=== PATIENT | female | born 1995 | race Caucasian/White ===

== ENCOUNTER 2016-07-10 20:16 | Emergency (ER) | payer OTHER | END 2016-07-10 20:43 | disposition left against medical advice (07) | LOC: UCCORT 20:16 | DX: H57.8 Other specified disorders of eye and adnexa (principal); Z53.21 Procedure and treatment not carried out due to patient leaving prior to being seen by health care provider ==

== ENCOUNTER 2016-12-07 13:33 | Emergency (ER) | payer OTHER | END 2016-12-07 14:15 | disposition left against medical advice (07) | LOC: UCCORT 13:33 | DX: J34.89 Other specified disorders of nose and nasal sinuses (principal); Z53.21 Procedure and treatment not carried out due to patient leaving prior to being seen by health care provider ==

== ENCOUNTER 2018-04-14 11:00 | Emergency (ER) | payer SELFPAY ==
[2018-04-14] MEDS ORDERED: Ondansetron INJ* 2 MG/ML VIAL IV ONE (11:50)
[2018-04-14] MEDS ORDERED: NS 0.9% 1000 ML* 1,000 ML BOLUS ONE (11:50)
--- NOTE | 2018-04-14 11:54 | UC ---
- HPI Summary HPI Summary: The patient is a 23-year-old female that is approximately 9 weeks by dates. She states that her first OB appointment isn't until the second week of April. She states that she has had daily nausea and vomiting for at least a month. She states that for the past 4 days she has had at least 15 episodes of vomiting a day. She states she hasn't been unable to tolerate any liquids. She thinks that she has lost some weight. She has no abdominal pain and left she is vomiting. While vomiting she has burning epigastric pain. She states she had hyperemesis gravidarum with her first 2 pregnancies. She still states she required Zofran with both of her first 2 pregnancies. She states that her symptoms with this are significantly worse. She denies any fever or chills. She denies any UTI symptoms. - History of Current Complaint Chief Complaint: UCGI Stated Complaint: VOMITING Time Seen by Provider: 04/14/18 11:25 Hx Obtained From: Patient Chief Complaint: Other: - N?V Onset/Duration: Started Weeks Ago Timing: Constant Severity: Worse Since: - past 4 days Current Severity: Severe Pain Intensity: 0 Location of Pain: Other: - epigastric/only whiole vomiting Character: Burning Aggravating Factors: Other: - any po intact Alleviating Factors: Nothing Associated Signs and Symptoms: Positive: Nausea, Vomiting. Negative: Back Pain , Fever, Genital Swelling or Blisters, Retained Foreign Body (Specify), Urinary Symptoms, Vaginal Bleeding or Discharge - Assessment Hx Now: Yes - Allergies/Home Medications Allergies/Adverse Reactions: Allergies Allergy/AdvReac Type Severity Reaction Status Date / Time cephalexin Allergy Hives Verified 04/14/18 11:22 Penicillins Allergy Hives Verified 04/14/18 11:22 Home Medications: Home Medications Metoprolol Tartrate TAB* [Lopressor TAB*] 1 tab DAILY 04/14/18 [History Confirmed 04/14/18] PMH/Surg Hx/FS Hx/Imm Hx Previously Healthy: Yes - Surgical History Surgical History: Yes Surgery Procedure, Year, and Place: RIGHT ANKLE SURGERY WITH HARDWARE - Family History Known Family History: Positive: None, Hypertension Negative: Diabetes - Social History Alcohol Use: None Substance Use Type: None Substance Use Comment - Amount & Last Used: yesterday Smoking Status (MU): Former Smoker When Did the Patient Quit Smoking/Using Tobacco: MAR 2016 Household Exposure Type: Cigarettes - Immunization History Most Recent Influenza Vaccination: Not the 2014/2015 Season Review of Systems All Other Systems Reviewed And Are Negative: Yes Gastrointestinal: Positive: Abdominal Pain - intermittent, Vomiting, Nausea Motor: Positive: Negative Neurovascular: Positive: Negative Musculoskeletal: Positive: Negative Neurological: Positive: Negative Psychological: Positive: Negative Physical Exam - Physical Exam Triage Information Reviewed: Yes Vital Signs Reviewed: Yes Appearance: Positive: Well-Appearing, No Pain Distress, Well-Nourished Skin: Positive: Warm Eyes: Positive: Normal, EOMI, CAITLYN ENT: Positive: Hearing grossly normal. Negative: Nasal congestion, Nasal drainage, Tonsillar swelling, Tonsillar exudate, Trismus, Muffled voice, Hoarse voice Neck: Positive: Supple, Nontender, No Lymphadenopathy Respiratory/Lung Sounds: Positive: Clear to Auscultation, Breath Sounds Present Cardiovascular: Positive: RRR. Negative: Murmur Abdomen Description: Positive: Nontender, Soft. Negative: CVA Tenderness (R), CVA Tenderness (L) Bowel Sounds: Positive: Present Musculoskeletal: Positive: Normal Psychiatric: Positive: Normal AVPU Assessment: Alert - Wm Coma Scale Eye: 4 - Spontaneous Motor: 6 - Obeys Commands Verbal: 5 - Oriented Coma Scale Total: 15 Re-Evaluation - Re-Evaluation First Eval Re-Evaluation Time: 13:18 Change: Improved - feels much better Course/Dx - Course Course Of Treatment: I discussed management of this patient's nausea and vomiting. Informed her that the FDA no longer recommend Zofran for the treatment of nausea in . She states that "the stuff with the vitamin B doesn't work for her". She states that if I don't give her Zofran and she will go out and terminate her because of the severity of her symptoms. - Diagnoses Provider Diagnoses: Hyperemesis gravidarum Discharge - Sign-Out/Discharge Documenting (check all that apply): Patient Departure All imaging exams completed and their final reports reviewed: No Studies - Discharge Plan Condition: Stable Disposition: HOME Patient Education Materials: Hyperemesis Gravidarum (ED) Referrals: Alexey Hillman MD [Primary Care Provider] - Additional Instructions: As discussed the FDA now warns against using zofran in due to an increased risk of defects. The FDA recommends Diglesis (which is a combination Vit B6/antihistamine).. You said this did not work for you. I think the risk of defects is low with zofran and this is certainly less risky for your fetus than termination of your due to severe nausea/ vomiting I suggest you let your OB know that you are having intractable vomiting and see if they can move your appt up blood work is pending to check any electrolyte abnormalities Please go to the ER if symptoms persist or worsen. We are happy to see you but this problem often results in blood work abnormalities and we do not have STAT lab work here. If you have not yet started a vit I suggest you take one daily that contains folate (folic acid) - Billing Disposition and Condition Condition: STABLE Disposition: Home
[2018-04-14] MEDS ORDERED: Famotidine IV* 10 MG/ML 2 ML (20 mg) IV SLOW PU ONE (11:55)
[2018-04-14 13:37] VITALS: BP 112/65
[2018-04-14 18:28] LABS: ABS Basophils 0 10^3/ul (0-0.2); ABS Eosinophils 0 10^3/ul (0-0.6); ABS Monocytes 0.3 10^3/ul (0-0.8); ABS Nucleated RBC 0 10^3/ul; Eosinophil % 0.4 %; Hematocrit 40 % (35-47); Hemoglobin 13.7 g/dl (12.0-16.0); Lymphocyte % 31.5 %; Mean Corpuscular HGB Conc 34 g/dl (31-36); Mean Corpuscular Hemoglobin 30 pg (27-31); Mean Corpuscular Volume 88 fL (80-97); Nucleated Red Blood Cells % 0.1; Platelet Count 296 10^3/ul (150-450); Red Blood Count 4.55 10^6/ul (4.00-5.40); Red Cell Distribution Width 14 % (10.5-15); White Blood Count 6.3 10^3/ul (3.5-10.8)
[2018-04-14 18:31] LABS: Albumin 3.9 g/dL (3.2-5.2); Calcium 9.5 mg/dL (8.6-10.3); Potassium 3.8 mmol/L (3.5-5.0); Total Bilirubin 0.3 mg/dL (0.2-1.0)
[2018-04-14 18:37] LABS: Albumin/Globulin Ratio 1.3 (1-3); BUN/Creatinine Ratio 16.7 (8-20); EGFR Non-African American 138.7 (>60); Globulin 2.9 g/dL (2-4); Total Protein 6.8 g/dL (6.4-8.9)
--- NOTE | 2018-04-16 07:17 | UC ---
- Progress Note Progress Note: urine culture, no growth final no change Blaynej 04/16/18 Re-Evaluation - Re-Evaluation First Eval Re-Evaluation Time: 13:18 Change: Improved - feels much better Course/Dx - Diagnoses Provider Diagnoses: Hyperemesis gravidarum Discharge - Sign-Out/Discharge Documenting (check all that apply): Patient Departure All imaging exams completed and their final reports reviewed: No Studies - Discharge Plan Condition: Stable Disposition: HOME Prescriptions: Ondansetron TAB* [Zofran Tab*] 4 mg PO Q6H PRN #20 tab PRN Reason: Nausea Patient Education Materials: Hyperemesis Gravidarum (ED) Referrals: Alexey Hillman MD [Primary Care Provider] - Additional Instructions: As discussed the FDA now warns against using zofran in due to an increased risk of defects. The FDA recommends Diglesis (which is a combination Vit B6/antihistamine).. You said this did not work for you. I think the risk of defects is low with zofran and this is certainly less risky for your fetus than termination of your due to severe nausea/ vomiting I suggest you let your OB know that you are having intractable vomiting and see if they can move your appt up blood work is pending to check any electrolyte abnormalities Please go to the ER if symptoms persist or worsen. We are happy to see you but this problem often results in blood work abnormalities and we do not have STAT lab work here. If you have not yet started a vit I suggest you take one daily that contains folate (folic acid) A URINE CULTURE IS PENDING - Billing Disposition and Condition Condition: STABLE Disposition: Home
== END 2018-04-14 13:50 | disposition home or self-care (01) ==
LOC: UCCORT 11:00
DX: O21.0 Mild hyperemesis gravidarum (principal); O99.89 Other specified diseases and conditions complicating pregnancy, childbirth and the puerperium; R10.9 Unspecified abdominal pain; Z3A.09 9 weeks gestation of pregnancy; Z88.1 Allergy status to other antibiotic agents; Z88.0 Allergy status to penicillin; Z87.891 Personal history of nicotine dependence; Z77.22 Contact with and (suspected) exposure to environmental tobacco smoke (acute) (chronic)
CPT/HCPCS: 36415; 80053; 81003; 83690; 85025; 87086; 96361; 96374; 96375; 99212; G0463; J2405

== ENCOUNTER 2018-05-03 10:06 | Emergency (ER) | payer MEDICAID ==
[2018-05-03 10:48] VITALS: BP 102/58
--- NOTE | 2018-05-03 11:53 | UC ---
UC General HPI - HPI Summary HPI Summary: Pt c/o of hx of hyperemesis gravidum. Pt has run out of zofran medication and is requesting refill. Pt states her OB refused to see her due to lack of insurance. Pt states she can feel baby moving. - History of Current Complaint Chief Complaint: UCGI Stated Complaint: VOMITING Time Seen by Provider: 05/03/18 11:49 Hx Obtained From: Patient Hx Last Menstrual Period: 02/07/19 Onset/Duration: Gradual Onset, Lasting Weeks, Still Present Timing: Constant Onset Severity: Mild Current Severity: Mild Pain Intensity: 0 Associated Signs & Symptoms: Positive: Vomiting - Allergy/Home Medications Allergies/Adverse Reactions: Allergies Allergy/AdvReac Type Severity Reaction Status Date / Time cephalexin Allergy Hives Verified 05/03/18 10:43 Penicillins Allergy Hives Verified 05/03/18 10:43 Home Medications: Home Medications Pnv No.95/Ferrous Fum/Folic AC [ Tablet] 1 tab PO DAILY 05/03/18 [ History Confirmed 05/03/18] PMH/Surg Hx/FS Hx/Imm Hx Previously Healthy: Yes - Surgical History Surgical History: Yes Surgery Procedure, Year, and Place: RIGHT ANKLE SURGERY WITH HARDWARE - Family History Known Family History: Positive: None, Hypertension Negative: Diabetes - Social History Occupation: Employed Full-time Lives: With Family Alcohol Use: None Substance Use Type: None Substance Use Comment - Amount & Last Used: yesterday Smoking Status (MU): Former Smoker Have You Smoked in the Last Year: No When Did the Patient Quit Smoking/Using Tobacco: MAR 2016 Household Exposure Type: Cigarettes - Immunization History Most Recent Influenza Vaccination: Not the Season Review of Systems All Other Systems Reviewed And Are Negative: Yes Constitutional: Positive: Negative Skin: Positive: Negative Eyes: Positive: Negative ENT: Positive: Negative Respiratory: Positive: Negative Cardiovascular: Positive: Negative Gastrointestinal: Positive: Vomiting, Nausea Genitourinary: Positive: Negative Motor: Positive: Negative Neurovascular: Positive: Negative Musculoskeletal: Positive: Negative Neurological: Positive: Negative Psychological: Positive: Negative Is Patient Immunocompromised?: No Physical Exam Triage Information Reviewed: Yes Appearance: Well-Appearing Vital Signs: Initial Vital Signs Temp 98 F 05/03/18 10:44 Pulse 71 05/03/18 10:44 Resp 16 05/03/18 10:44 BP 102/58 05/03/18 10:44 Pulse Ox 100 05/03/18 10:44 Vital Signs Reviewed: Yes Eye Exam: Normal ENT Exam: Normal Dental Exam: Normal Neck exam: Normal Respiratory Exam: Normal Respiratory: Positive: No respiratory distress Cardiovascular Exam: Normal Abdomen Description: Positive: Nontender Musculoskeletal Exam: Normal Neurological Exam: Normal Psychological Exam: Normal Skin Exam: Normal Course/Dx - Differential Dx - Multi-Symptom Differential Diagnoses: Other - hyperemesis. Medication refill - Diagnoses Provider Diagnosis: Medication refill, Nausea and vomiting during Discharge - Sign-Out/Discharge Documenting (check all that apply): Patient Departure All imaging exams completed and their final reports reviewed: No Studies - Discharge Plan Condition: Stable Disposition: HOME Prescriptions: Ondansetron TAB* [Zofran 4 MG Tab*] 4 mg PO Q6H PRN #20 tab PRN Reason: Nausea Patient Education Materials: Hyperemesis Gravidarum (ED) Referrals: Alexey Hillman MD [Primary Care Provider] - If Needed - Billing Disposition and Condition Condition: STABLE Disposition: Home - Attestation Statements Provider Attestation: I was available for consult. This patient was seen by the [facility]. The patient was not presented to, seen by, or examined by me. EK
== END 2018-05-03 12:02 | disposition home or self-care (01) ==
LOC: UCCORT 10:06
DX: O21.0 Mild hyperemesis gravidarum (principal); Z88.1 Allergy status to other antibiotic agents; Z88.0 Allergy status to penicillin
CPT/HCPCS: 99212; G0463

== ENCOUNTER 2018-06-06 07:25 | Emergency (ER) | payer SELFPAY ==
[2018-06-06 07:36] VITALS: BP 110/66
--- NOTE | 2018-06-06 07:48 | UC ---
Respiratory Complaint HPI - HPI Summary HPI Summary: cough x 4 weeks cough is productive, yellow sputum nasal congestion , pnd, no sore throat no fever, no chill s pt. is 18 week , c/o severe nausea and vomiting no abdominal pain - History of Current Complaint Chief Complaint: UCRespiratory Stated Complaint: COUGH, CONGESTION, VOMITING (18WKS PREG) Time Seen by Provider: 06/06/18 07:37 Hx Obtained From: Patient Hx Last Menstrual Period: 02/07/19 ?: Yes Onset/Duration: Gradual Onset, Lasting Weeks - 4, Still Present Timing: Constant Severity Initially: Moderate Severity Currently: Moderate Pain Intensity: 0 Character: Cough: Productive Aggravating Factors: Exertion, Deep Breaths Alleviating Factors: Nothing Associated Signs And Symptoms: Positive: URI, Nasal Congestion. Negative: Dyspnea, Fever, Chills, Pleuritic Chest Pain, Wheezing, Hemoptysis, Dizziness, Calf Pain, Calf Swelling, Hoarseness, Sinus Discomfort - Allergies/Home Medications Allergies/Adverse Reactions: Allergies Allergy/AdvReac Type Severity Reaction Status Date / Time cephalexin Allergy Hives Verified 05/24/18 11:07 diphenhydramine Allergy Hives Verified 06/06/18 07:34 [From Benadryl Allergy] Penicillins Allergy Hives Verified 05/24/18 11:07 PMH/Surg Hx/FS Hx/Imm Hx Previously Healthy: Yes - Surgical History Surgical History: Yes Surgery Procedure, Year, and Place: RIGHT ANKLE SURGERY WITH HARDWARE - Family History Known Family History: Positive: None, Hypertension Negative: Diabetes - Social History Alcohol Use: None Substance Use Type: None Substance Use Comment - Amount & Last Used: yesterday Smoking Status (MU): Former Smoker Have You Smoked in the Last Year: No When Did the Patient Quit Smoking/Using Tobacco: MAR 2016 Household Exposure Type: Cigarettes - Immunization History Most Recent Influenza Vaccination: Not the 2014/2015 Season Review of Systems All Other Systems Reviewed And Are Negative: Yes Constitutional: Positive: Negative Skin: Positive: Negative Eyes: Positive: Negative ENT: Positive: Sore Throat, Nasal Discharge Respiratory: Positive: Cough Cardiovascular: Positive: Negative Gastrointestinal: Positive: Vomiting, Nausea Is Patient Immunocompromised?: No Physical Exam Triage Information Reviewed: Yes Appearance: Well-Appearing, No Pain Distress, Well-Nourished Vital Signs: Initial Vital Signs Temp 97.5 F 06/06/18 07:33 Pulse 78 06/06/18 07:33 Resp 16 06/06/18 07:33 BP 110/66 06/06/18 07:33 Pulse Ox 100 06/06/18 07:33 Vital Signs Reviewed: Yes Eye Exam: Normal Eyes: Positive: Conjunctiva Clear ENT Exam: Normal ENT: Positive: Normal ENT inspection, Hearing grossly normal, Pharynx normal, Nasal drainage Neck: Positive: Supple, Nontender, No Lymphadenopathy Respiratory: Positive: Chest non-tender, Lungs clear, Normal breath sounds Cardiovascular: Positive: RRR, No Murmur, Pulses Normal Abdomen Description: Positive: Nontender, Soft. Negative: CVA Tenderness (R), CVA Tenderness (L), Distended, Guarding Bowel Sounds: Positive: Present Skin Exam: Normal Respiratory Course/Dx - Differential Dx/Diagnosis Provider Diagnosis: Bronchitis, Nausea/vomiting in Discharge - Sign-Out/Discharge Documenting (check all that apply): Patient Departure All imaging exams completed and their final reports reviewed: No Studies - Discharge Plan Condition: Stable Disposition: HOME Prescriptions: Ondansetron ODT TAB* [Zofran 4 MG Odt TAB*] 4 mg PO Q8H PRN #15 tab.odt PRN Reason: Nausea/Vomiting Patient Education Materials: Nausea and Vomiting in (ED), Acute Bronchitis (ED) Referrals: Alexey Hillman MD [Primary Care Provider] - 7 Days - Billing Disposition and Condition Condition: STABLE Disposition: Home
== END 2018-06-06 07:51 | disposition home or self-care (01) ==
LOC: UCCORT 07:25
DX: O21.8 Other vomiting complicating pregnancy (principal); O99.89 Other specified diseases and conditions complicating pregnancy, childbirth and the puerperium; O99.512 Diseases of the respiratory system complicating pregnancy, second trimester; J40 Bronchitis, not specified as acute or chronic; R09.81 Nasal congestion; Z3A.18 18 weeks gestation of pregnancy; Z88.1 Allergy status to other antibiotic agents; Z88.8 Allergy status to other drugs, medicaments and biological substances; Z88.0 Allergy status to penicillin; Z87.891 Personal history of nicotine dependence
CPT/HCPCS: 99212; G0463